=== PATIENT | female | born 1950 | race Caucasian/White ===

== ENCOUNTER → 2017-02-16 09:49 | Outpatient (CLI) | payer MEDICARE, OTHER | END | disposition home or self-care (01) | LOC: D.CT 09:49 | DX: R51 Headache (principal) ==

== ENCOUNTER → 2018-05-16 12:34 | Outpatient (CLI) | payer MEDICARE, OTHER | END | disposition home or self-care (01) | LOC: D.MRI 12:34 | PROVIDERS: ATTEND Family Medicine | DX: R26.9 Unspecified abnormalities of gait and mobility (principal); R51 Headache ==